=== PATIENT | female | born 1990 | race Caucasian/White ===

== ENCOUNTER 2018-08-11 16:30 | Outpatient (CLI) | payer MEDICAID ==
[2018-08-11 17:04] LABS: ADD MAN DIFF? NO; BASOPHIL # 0.1 10^3/ul (0.0-0.1); BASOPHILS % 0.7 % (0.0-2.0); EOSINOPHILS # 0.1 10^3/ul (0.0-0.5); EOSINOPHILS % 0.5 % (0.0-7.0); HEMATOCRIT 32.5 % (37.0-47.0); HEMOGLOBIN 10.9 g/dl (12.0-16.0); LYMPHOCYTES # 1.7 10^3/ul (0.8-2.9); LYMPHOCYTES % 14.1 % (15.0-51.0); MEAN CORPUSCULAR HEMOGLOBIN 31.1 pg (29.0-33.0); MEAN CORPUSCULAR HGB CONC 33.5 g/dl (32.0-37.0); MEAN CORPUSCULAR VOLUME 92.6 fl (82.0-101.0); MEAN PLATELET VOLUME 9.8 fl (7.4-10.4); MONOCYTE # 0.8 10^3/ul (0.3-0.9); MONOCYTES % 6.5 % (0.0-11.0); NEUTROPHIL # 8.9 10^3/ul (1.6-7.5); NEUTROPHILS % 76.6 % (39.0-77.0); PLATELET COUNT 341 10^3/UL (140-415); RED BLOOD COUNT 3.51 10^6/ul (4.20-5.40); RED CELL DISTRIBUTION WIDTH 13.9 % (11.5-14.5)
[2018-08-11 17:04] LABS: WHITE BLOOD COUNT 11.7 10^3/ul (4.8-10.8)
[2018-08-11 17:08] LABS: ADD UMIC NO; UR ASCORBIC ACID NEGATIVE (NEGATIVE); UR BILIRUBIN (Dip) NEGATIVE (NEGATIVE); UR BLOOD (Dip) NEGATIVE (NEGATIVE); UR CLARITY CLEAR (CLEAR); UR COLOR STRAW (YELLOW); UR GLUCOSE (Dip) NEGATIVE (NEGATIVE); UR KETONES (Dip) NEGATIVE (NEGATIVE); UR LEUKOCYTE ESTERASE (Dip) NEGATIVE Leu/ul (NEGATIVE); UR NITRITE (Dip) NEGATIVE (NEGATIVE); UR SPECIFIC GRAVITY (Dip) 1.002 (1.003-1.030); UR TOTAL PROTEIN (Dip) NEGATIVE (NEGATIVE); UR UROBILINOGEN (Dip) NEGATIVE (NEGATIVE)
[2018-08-11 17:26] LABS: ALANINE AMINOTRANSFERASE 12 IU/L (13-69); ALBUMIN 4.3 g/dl (3.3-4.9); ALKALINE PHOSPHATASE 95 IU/L (42-121); ANION GAP 14 (5-13); ASPARTATE AMINO TRANSFERASE 19 IU/L (15-46); BILIRUBIN,INDIRECT 0.1 mg/dl (0-1.1); BILIRUBIN,TOTAL 0.1 mg/dl (0.2-1.3); BLOOD UREA NITROGEN 6 mg/dl (7-20); CALCIUM 10.5 mg/dl (8.4-10.2); CARBON DIOXIDE 21 mmol/L (21-31); CHLORIDE 105 mmol/L (97-110); Estimated GFR > 60 mL/min (>60); GLUCOSE 99 mg/dl (70-220); POTASSIUM 4.1 mmol/L (3.5-5.1); SODIUM 140 mmol/L (135-144); TOTAL PROTEIN 8.2 g/dl (6.1-8.1); URIC ACID 4.5 mg/dl (3.1-7.9)
[2018-08-11 17:53] LABS: ALANINE AMINOTRANSFERASE 15 IU/L (13-69); ALBUMIN 4.2 g/dl (3.3-4.9); ALKALINE PHOSPHATASE 90 IU/L (42-121); ASPARTATE AMINO TRANSFERASE 17 IU/L (15-46); BILIRUBIN,INDIRECT 0.1 mg/dl (0-1.1); BILIRUBIN,TOTAL 0.1 mg/dl (0.2-1.3); TOTAL PROTEIN 7.6 g/dl (6.1-8.1)
[2018-08-11] MEDS ORDERED: ACETAMINOPHEN 325 MG TAB PO (18:45)
== END 2018-08-11 20:25 | disposition home or self-care (01) ==
LOC: OBT 16:30 → L-D 16:32 → OBT 20:25
DX: O13.2 Gestational [pregnancy-induced] hypertension without significant proteinuria, second trimester (principal); Z3A.22 22 weeks gestation of pregnancy
CPT/HCPCS: 36415; 80053; 80076; 81003; 84560; 85025

== ENCOUNTER 2018-10-13 15:37 | Inpatient (IN) | payer MEDICAID ==
[2018-10-13 16:20] LABS: ADD UMIC YES; UR ASCORBIC ACID NEGATIVE (NEGATIVE); UR BACTERIA FEW /HPF (NONE SEEN); UR BILIRUBIN (Dip) NEGATIVE (NEGATIVE); UR BLOOD (Dip) NEGATIVE (NEGATIVE); UR BUDDING YEAST FEW /HPF (NONE SEEN); UR CLARITY CLEAR (CLEAR); UR COLOR STRAW (YELLOW); UR GLUCOSE (Dip) NEGATIVE (NEGATIVE); UR KETONES (Dip) TRACE mg/dL (NEGATIVE); UR LEUKOCYTE ESTERASE (Dip) TRACE Leu/ul (NEGATIVE); UR NITRITE (Dip) NEGATIVE (NEGATIVE); UR RBC 0 /HPF (0-5); UR SPECIFIC GRAVITY (Dip) 1.003 (1.003-1.030); UR SQUAMOUS EPITHELIAL CELL FEW /HPF (FEW); UR TOTAL PROTEIN (Dip) NEGATIVE (NEGATIVE); UR UROBILINOGEN (Dip) NEGATIVE (NEGATIVE); UR WBC 11 /HPF (0-5)
[2018-10-13 16:48] LABS: ADD MAN DIFF? NO
[2018-10-13 16:50] LABS: WHITE BLOOD COUNT 9.2 10^3/ul (4.8-10.8)
[2018-10-13 16:50] LABS: BASOPHIL # 0.1 10^3/ul (0.0-0.1); BASOPHILS % 0.8 % (0.0-2.0); EOSINOPHILS # 0.1 10^3/ul (0.0-0.5); EOSINOPHILS % 0.5 % (0.0-7.0); HEMATOCRIT 32.1 % (37.0-47.0); LYMPHOCYTES # 1.4 10^3/ul (0.8-2.9); LYMPHOCYTES % 14.7 % (15.0-51.0); MEAN CORPUSCULAR HEMOGLOBIN 31.3 pg (29.0-33.0); MEAN CORPUSCULAR HGB CONC 34.3 g/dl (32.0-37.0); MEAN CORPUSCULAR VOLUME 91.5 fl (82.0-101.0); MEAN PLATELET VOLUME 10.1 fl (7.4-10.4); MONOCYTE # 0.6 10^3/ul (0.3-0.9); MONOCYTES % 6.5 % (0.0-11.0); NEUTROPHIL # 7.1 10^3/ul (1.6-7.5); NEUTROPHILS % 76.7 % (39.0-77.0); PLATELET COUNT 273 10^3/UL (140-415); RED BLOOD COUNT 3.51 10^6/ul (4.20-5.40); RED CELL DISTRIBUTION WIDTH 13.7 % (11.5-14.5)
[2018-10-13 17:09] LABS: ALANINE AMINOTRANSFERASE 74 IU/L (13-69); ALBUMIN 3.7 g/dl (3.3-4.9); ALBUMIN/GLOBULIN RATIO 1.15; ALKALINE PHOSPHATASE 117 IU/L (42-121); ANION GAP 6 (5-13); ASPARTATE AMINO TRANSFERASE 44 IU/L (15-46); BILIRUBIN,INDIRECT 0.3 mg/dl (0-1.1); BILIRUBIN,TOTAL 0.3 mg/dl (0.2-1.3); BLOOD UREA NITROGEN 6 mg/dl (7-20); CALCIUM 9.7 mg/dl (8.4-10.2); CARBON DIOXIDE 22 mmol/L (21-31); CHLORIDE 110 mmol/L (97-110); Estimated GFR > 60 mL/min (>60); GLUCOSE 94 mg/dl (70-220); INR 0.93; POTASSIUM 3.7 mmol/L (3.5-5.1); PROTIME 12.6 Sec (11.9-14.9); SODIUM 138 mmol/L (135-144); TOTAL PROTEIN 6.9 g/dl (6.1-8.1); URIC ACID 5.2 mg/dl (3.1-7.9)
[2018-10-13] MEDS ORDERED: ONDANSETRON 4 MG INJ IV (19:00)
[2018-10-13] MEDS ORDERED: AL HYDROX/MG HYDROX/SIMETH 30 ML CUP PO (19:00)
[2018-10-13] MEDS ORDERED: DEXTROSE 50% 50 ML SYRINGE IV ×2 (20:30)
[2018-10-13] MEDS ORDERED: GLUCAGON 1 MG INJ IM (20:30)
[2018-10-13] MEDS ORDERED: GLUCOSE GEL 15 GRAM TUBE PO ×2 (20:30)
[2018-10-13] MEDS ORDERED: GLUCOSE GEL 15 GRAM TUBE BUCCAL (20:30)
[2018-10-14 06:25] LABS: ADD MAN DIFF? NO
[2018-10-14 06:30] LABS: BASOPHIL # 0.1 10^3/ul (0.0-0.1); EOSINOPHILS # 0.1 10^3/ul (0.0-0.5); EOSINOPHILS % 0.7 % (0.0-7.0); HEMATOCRIT 32.3 % (37.0-47.0); LYMPHOCYTES # 2.2 10^3/ul (0.8-2.9); LYMPHOCYTES % 23.3 % (15.0-51.0); MEAN CORPUSCULAR HEMOGLOBIN 31.3 pg (29.0-33.0); MEAN CORPUSCULAR HGB CONC 34.1 g/dl (32.0-37.0); MEAN CORPUSCULAR VOLUME 91.8 fl (82.0-101.0); MEAN PLATELET VOLUME 10.2 fl (7.4-10.4); MONOCYTE # 0.6 10^3/ul (0.3-0.9); MONOCYTES % 6.7 % (0.0-11.0); NEUTROPHIL # 6.3 10^3/ul (1.6-7.5); NEUTROPHILS % 66.9 % (39.0-77.0); PLATELET COUNT 260 10^3/UL (140-415); RED BLOOD COUNT 3.52 10^6/ul (4.20-5.40); RED CELL DISTRIBUTION WIDTH 13.6 % (11.5-14.5)
[2018-10-14 06:30] LABS: WHITE BLOOD COUNT 9.4 10^3/ul (4.8-10.8)
[2018-10-14 06:44] LABS: INR 0.92; PROTIME 12.5 Sec (11.9-14.9)
[2018-10-14 06:45] LABS: PARTIAL THROMBOPLASTIN TIME 25.6 Sec (23.0-35.0)
[2018-10-14 06:49] LABS: ALANINE AMINOTRANSFERASE 71 IU/L (13-69); URIC ACID 5.2 mg/dl (3.1-7.9)
[2018-10-14 06:49] LABS: ASPARTATE AMINO TRANSFERASE 40 IU/L (15-46)
[2018-10-14] MEDS: ACCU-CHEK XX (19:30)
[2018-10-14 22:25] LABS: COLLECTION PERIOD 24 hrs
[2018-10-14 22:47] LABS: VOLUME 7700 mls
[2018-10-14 22:48] LABS: 24HR URINE TOTAL PROTEIN > 600.0 mg/24hrs (42.0-225.0)
[2018-10-14 22:52] LABS: COLLECTION PERIOD 24 hrs
[2018-10-14 22:53] LABS: CREATININE CLEARANCE 173.7 mls/min (84.0-162.0); CREATININE,URINE RANDOM 19.49 mg/dl (20-320); VOLUME 7700 ml/24hrs
== END 2018-10-14 22:51 | disposition left against medical advice (07) | DRG 833 ==
LOC: OBT 15:37 → L-D 15:37 → OBT 16:08 → L-D 16:08
DX: O14.93 Unspecified pre-eclampsia, third trimester (principal); Z3A.32 32 weeks gestation of pregnancy
CPT/HCPCS: 36415; 76815; 76818; 80053; 81001; 82575; 82962; 84156; 84450; 84460; 84560; 85025; 85610; 85730; 87086

== ENCOUNTER 2018-10-21 13:46 | Inpatient (IN) | payer MEDICAID ==
[2018-10-21 15:15] LABS: ADD UMIC YES; UR ASCORBIC ACID NEGATIVE (NEGATIVE); UR BACTERIA MODERATE /HPF (NONE SEEN); UR BILIRUBIN (Dip) NEGATIVE (NEGATIVE); UR BLOOD (Dip) NEGATIVE (NEGATIVE); UR CLARITY SLIGHTLY CLOUDY (CLEAR); UR COLOR YELLOW (YELLOW); UR GLUCOSE (Dip) NEGATIVE (NEGATIVE); UR KETONES (Dip) NEGATIVE (NEGATIVE); UR LEUKOCYTE ESTERASE (Dip) 3+ Leu/ul (NEGATIVE); UR NITRITE (Dip) NEGATIVE (NEGATIVE); UR RBC 1 /HPF (0-5); UR SPECIFIC GRAVITY (Dip) 1.003 (1.003-1.030); UR SQUAMOUS EPITHELIAL CELL FEW /HPF (FEW); UR TOTAL PROTEIN (Dip) NEGATIVE (NEGATIVE); UR UROBILINOGEN (Dip) NEGATIVE (NEGATIVE); UR WBC 14 /HPF (0-5)
[2018-10-21 17:07] LABS: ADD MAN DIFF? NO
[2018-10-21 17:10] LABS: BASOPHIL # 0.1 10^3/ul (0.0-0.1); BASOPHILS % 0.6 % (0.0-2.0); EOSINOPHILS % 0.3 % (0.0-7.0); HEMOGLOBIN 11.4 g/dl (12.0-16.0); LYMPHOCYTES # 1.4 10^3/ul (0.8-2.9); LYMPHOCYTES % 14.3 % (15.0-51.0); MEAN CORPUSCULAR HEMOGLOBIN 30.9 pg (29.0-33.0); MEAN CORPUSCULAR HGB CONC 33.5 g/dl (32.0-37.0); MEAN CORPUSCULAR VOLUME 92.1 fl (82.0-101.0); MEAN PLATELET VOLUME 10.1 fl (7.4-10.4); MONOCYTE # 0.8 10^3/ul (0.3-0.9); MONOCYTES % 8.2 % (0.0-11.0); NEUTROPHIL # 7.1 10^3/ul (1.6-7.5); NEUTROPHILS % 75.3 % (39.0-77.0); PLATELET COUNT 254 10^3/UL (140-415); RED BLOOD COUNT 3.69 10^6/ul (4.20-5.40); RED CELL DISTRIBUTION WIDTH 13.9 % (11.5-14.5)
[2018-10-21 17:10] LABS: WHITE BLOOD COUNT 9.5 10^3/ul (4.8-10.8)
[2018-10-21] MEDS: LACTATED RINGER'S 1,000 ML IV (17:20)
[2018-10-21 17:28] LABS: ALANINE AMINOTRANSFERASE 83 IU/L (13-69); ALBUMIN 3.8 g/dl (3.3-4.9); ALBUMIN/GLOBULIN RATIO 1.02; ALKALINE PHOSPHATASE 125 IU/L (42-121); ANION GAP 9 (5-13); ASPARTATE AMINO TRANSFERASE 61 IU/L (15-46); BILIRUBIN,INDIRECT 0.4 mg/dl (0-1.1); BILIRUBIN,TOTAL 0.4 mg/dl (0.2-1.3); BLOOD UREA NITROGEN 8 mg/dl (7-20); CALCIUM 9.1 mg/dl (8.4-10.2); CARBON DIOXIDE 24 mmol/L (21-31); CHLORIDE 102 mmol/L (97-110); CREATININE 0.82 mg/dl (0.44-1.00); Estimated GFR > 60 mL/min (>60); GLUCOSE 104 mg/dl (70-220); POTASSIUM 4.3 mmol/L (3.5-5.1); SODIUM 135 mmol/L (135-144); TOTAL PROTEIN 7.5 g/dl (6.1-8.1); URIC ACID 5.9 mg/dl (3.1-7.9)
[2018-10-21 17:30] LABS: INR 0.98; PROTIME 13.1 Sec (11.9-14.9)
[2018-10-21 17:31] LABS: PARTIAL THROMBOPLASTIN TIME 25.1 Sec (23.0-35.0)
[2018-10-21] MEDS: BETAMET NA PHOS/AC(6 MG/ML) 2 ML INJ SYG IM (18:53)
[2018-10-21 20:11] LABS: VANCOMYCIN,TROUGH < 5.0 ug/ml (10.0-20.0)
[2018-10-21] MEDS: VANCOMYCIN 1 GM (PMX) 250 ML IVPB (20:45)
[2018-10-21] MEDS ORDERED: VANCOMYCIN IV PER PHARMACY XX (21:30)
[2018-10-21 23:08] LABS: HEMOGLOBIN A1C 5.1 % (0-5.9)
[2018-10-22] MEDS: LACTATED RINGER'S 1,000 ML IV ×3 (02:51→23:56)
[2018-10-22] MEDS: VANCOMYCIN 1 GM 250 ML IVPB ×2 (05:50→17:57)
[2018-10-22] MEDS: PRENATAL VITAMIN PO (09:10)
[2018-10-22] MEDS: FERROUS SULFATE (EC) 325 MG TAB PO (09:10)
[2018-10-22] MEDS: DOCUSATE SODIUM 100 MG CAP PO ×2 (09:10→22:30)
[2018-10-22] MEDS: LABETALOL 100 MG TAB PO (11:00)
[2018-10-22] MEDS: BETAMET NA PHOS/AC(6 MG/ML) 2 ML INJ SYG IM (19:00)
[2018-10-22] MEDS: NITROFURANTOIN (SR) 100 MG CAP PO (22:30)
[2018-10-22] MEDS: RANITIDINE 150 MG TAB PO (22:40)
[2018-10-23] MEDS: LACTATED RINGER'S 1,000 ML IV ×4 (00:09→22:36)
[2018-10-23] MEDS: PRENATAL VITAMIN PO (08:16)
[2018-10-23] MEDS: FERROUS SULFATE (EC) 325 MG TAB PO (08:16)
[2018-10-23] MEDS: NITROFURANTOIN (SR) 100 MG CAP PO ×2 (08:16→20:39)
[2018-10-23] MEDS: DOCUSATE SODIUM 100 MG CAP PO ×2 (08:16→20:39)
[2018-10-23] MEDS: RANITIDINE 150 MG TAB PO ×2 (22:00→22:38)
[2018-10-24] MEDS: LACTATED RINGER'S 1,000 ML IV ×3 (06:17→22:30)
[2018-10-24] MEDS: ACCU-CHEK XX ×4 (07:45→20:18)
[2018-10-24 08:22] LABS: ADD MAN DIFF? NO
[2018-10-24 08:27] LABS: BASOPHIL # 0.1 10^3/ul (0.0-0.1); BASOPHILS % 0.7 % (0.0-2.0); EOSINOPHILS % 0.3 % (0.0-7.0); HEMATOCRIT 30.3 % (37.0-47.0); HEMOGLOBIN 9.9 g/dl (12.0-16.0); LYMPHOCYTES % 18.3 % (15.0-51.0); MEAN CORPUSCULAR HEMOGLOBIN 30.6 pg (29.0-33.0); MEAN CORPUSCULAR HGB CONC 32.7 g/dl (32.0-37.0); MEAN CORPUSCULAR VOLUME 93.5 fl (82.0-101.0); MEAN PLATELET VOLUME 10.6 fl (7.4-10.4); MONOCYTE # 0.8 10^3/ul (0.3-0.9); MONOCYTES % 7.5 % (0.0-11.0); NEUTROPHIL # 7.5 10^3/ul (1.6-7.5); NEUTROPHILS % 69.3 % (39.0-77.0); NUCLEATED RED BLOOD CELLS # 0.1 10^3/ul (0.0-0.0); NUCLEATED RED BLOOD CELLS% 0.5 /100WBC (0.0-0.0); PLATELET COUNT 249 10^3/UL (140-415); RED BLOOD COUNT 3.24 10^6/ul (4.20-5.40); RED CELL DISTRIBUTION WIDTH 14.2 % (11.5-14.5)
[2018-10-24 08:27] LABS: WHITE BLOOD COUNT 10.9 10^3/ul (4.8-10.8)
[2018-10-24 08:49] LABS: ALANINE AMINOTRANSFERASE 223 IU/L (13-69); ALBUMIN 3.2 g/dl (3.3-4.9); ALBUMIN/GLOBULIN RATIO 1.18; ALKALINE PHOSPHATASE 98 IU/L (42-121); ANION GAP 7 (5-13); ASPARTATE AMINO TRANSFERASE 149 IU/L (15-46); BILIRUBIN,INDIRECT 0.3 mg/dl (0-1.1); BILIRUBIN,TOTAL 0.3 mg/dl (0.2-1.3); BLOOD UREA NITROGEN 8 mg/dl (7-20); CALCIUM 8.8 mg/dl (8.4-10.2); CARBON DIOXIDE 22 mmol/L (21-31); CHLORIDE 111 mmol/L (97-110); CREATININE 0.61 mg/dl (0.44-1.00); Estimated GFR > 60 mL/min (>60); GLUCOSE 63 mg/dl (70-220); POTASSIUM 3.9 mmol/L (3.5-5.1); SODIUM 140 mmol/L (135-144); TOTAL PROTEIN 5.9 g/dl (6.1-8.1); URIC ACID 5.3 mg/dl (3.1-7.9)
[2018-10-24] MEDS: DOCUSATE SODIUM 100 MG CAP PO ×2 (09:08→20:54)
[2018-10-24] MEDS: PRENATAL VITAMIN PO (09:08)
[2018-10-24] MEDS: FERROUS SULFATE (EC) 325 MG TAB PO ×2 (09:08→20:54)
[2018-10-24] MEDS: NITROFURANTOIN (SR) 100 MG CAP PO ×2 (09:08→20:55)
[2018-10-24] MEDS: LABETALOL 100 MG TAB PO ×2 (19:29→23:29)
[2018-10-24] MEDS: LABETALOL HCL 20MG INJ IV (20:54)
[2018-10-24] MEDS: RANITIDINE 150 MG TAB PO (22:30)
[2018-10-25] MEDS: LACTATED RINGER'S 1,000 ML IV ×2 (05:56→13:53)
[2018-10-25 07:41] LABS: ADD MAN DIFF? NO
[2018-10-25 07:49] LABS: WHITE BLOOD COUNT 11.1 10^3/ul (4.8-10.8)
[2018-10-25 07:49] LABS: BASOPHIL # 0.1 10^3/ul (0.0-0.1); BASOPHILS % 0.9 % (0.0-2.0); EOSINOPHILS % 0.3 % (0.0-7.0); HEMATOCRIT 31.2 % (37.0-47.0); HEMOGLOBIN 10.3 g/dl (12.0-16.0); LYMPHOCYTES # 1.7 10^3/ul (0.8-2.9); LYMPHOCYTES % 15.1 % (15.0-51.0); MEAN PLATELET VOLUME 10.5 fl (7.4-10.4); MONOCYTE # 0.8 10^3/ul (0.3-0.9); NEUTROPHIL # 8.2 10^3/ul (1.6-7.5); NEUTROPHILS % 74.4 % (39.0-77.0); NUCLEATED RED BLOOD CELLS% 0.3 /100WBC (0.0-0.0); PLATELET COUNT 233 10^3/UL (140-415); RED BLOOD COUNT 3.32 10^6/ul (4.20-5.40); RED CELL DISTRIBUTION WIDTH 14.2 % (11.5-14.5)
[2018-10-25 08:09] LABS: ALANINE AMINOTRANSFERASE 247 IU/L (13-69); ALBUMIN 3.4 g/dl (3.3-4.9); ALBUMIN/GLOBULIN RATIO 1.09; ALKALINE PHOSPHATASE 109 IU/L (42-121); ANION GAP 8 (5-13); ASPARTATE AMINO TRANSFERASE 136 IU/L (15-46); BILIRUBIN,INDIRECT 0.4 mg/dl (0-1.1); BILIRUBIN,TOTAL 0.4 mg/dl (0.2-1.3); BLOOD UREA NITROGEN 6 mg/dl (7-20); CARBON DIOXIDE 22 mmol/L (21-31); CHLORIDE 110 mmol/L (97-110); CREATININE 0.61 mg/dl (0.44-1.00); Estimated GFR > 60 mL/min (>60); GLUCOSE 71 mg/dl (70-220); POTASSIUM 4.1 mmol/L (3.5-5.1); SODIUM 140 mmol/L (135-144); TOTAL PROTEIN 6.5 g/dl (6.1-8.1)
[2018-10-25] MEDS: ACCU-CHEK XX ×4 (08:43→20:44)
[2018-10-25] MEDS: DOCUSATE SODIUM 100 MG CAP PO ×2 (08:45→23:00)
[2018-10-25] MEDS: NITROFURANTOIN (SR) 100 MG CAP PO ×2 (08:45→23:00)
[2018-10-25] MEDS: FERROUS SULFATE (EC) 325 MG TAB PO ×2 (08:45→23:00)
[2018-10-25] MEDS: PRENATAL VITAMIN PO (08:45)
[2018-10-25] MEDS: LABETALOL 100 MG TAB PO ×2 (08:46→23:00)
[2018-10-25] MEDS: LABETALOL HCL 20MG INJ IV (20:11)
[2018-10-25] MEDS: MAGNESIUM SULFATE 4 GM/100 ML 100 ML IVPB (20:33)
[2018-10-25 20:53] LABS: ALANINE AMINOTRANSFERASE 279 IU/L (13-69); ALBUMIN 3.9 g/dl (3.3-4.9); ALBUMIN/GLOBULIN RATIO 1.05; ALKALINE PHOSPHATASE 135 IU/L (42-121); ANION GAP 9 (5-13); ASPARTATE AMINO TRANSFERASE 143 IU/L (15-46); BILIRUBIN,INDIRECT 0.4 mg/dl (0-1.1); BILIRUBIN,TOTAL 0.4 mg/dl (0.2-1.3); BLOOD UREA NITROGEN 9 mg/dl (7-20); CALCIUM 10.2 mg/dl (8.4-10.2); CARBON DIOXIDE 22 mmol/L (21-31); CHLORIDE 107 mmol/L (97-110); CREATININE 0.65 mg/dl (0.44-1.00); Estimated GFR > 60 mL/min (>60); GLUCOSE 95 mg/dl (70-220); POTASSIUM 3.4 mmol/L (3.5-5.1); SODIUM 138 mmol/L (135-144); TOTAL PROTEIN 7.6 g/dl (6.1-8.1)
[2018-10-25 20:59] LABS: INR 0.88; PT RATIO 0.9
[2018-10-25 21:00] LABS: PARTIAL THROMBOPLASTIN TIME 23.2 Sec (23.0-35.0)
[2018-10-25] MEDS ORDERED: LABETALOL 100 MG TAB PO (21:00)
[2018-10-25] MEDS: CLINDAMYCIN 900 MG/D5W (PMX) 50 ML IVPB (22:51)
[2018-10-25] MEDS: ONDANSETRON 4 MG INJ IV (22:53)
[2018-10-25] MEDS: METOCLOPRAMIDE 10 MG INJ IV (22:53)
[2018-10-25] MEDS ORDERED: DIPHENHYDRAMINE 50 MG INJ IV ×2 (23:00)
[2018-10-25] MEDS ORDERED: HYDROmorphONE 1 MG/5 ML IV SYRINGE IV ×3 (23:00)
[2018-10-25] MEDS ORDERED: NALOXONE (0.4 MG/ML) INJ IV (23:00)
[2018-10-25] MEDS ORDERED: METOCLOPRAMIDE 10 MG INJ IV (23:00)
[2018-10-25] MEDS ORDERED: ONDANSETRON 4 MG INJ IV ×2 (23:00)
[2018-10-25] MEDS ORDERED: KETOROLAC 30 MG INJ IV (23:00)
[2018-10-25] MEDS ORDERED: ALBUTEROL 0.083% (NEB) 2.5 MG/3 ML AMP HHN (23:00)
[2018-10-25] MEDS ORDERED: FENTAnyl 50 MCG/ML VIAL IV ×3 (23:00)
[2018-10-25] MEDS ORDERED: HYDROmorphONE 0.5 MG/0.5 ML SYG IV ×2 (23:00)
[2018-10-25] MEDS ORDERED: morphine SULFATE/PF (10 MG/10 ML) INJ (23:22)
[2018-10-25] MEDS: GENTAMICIN 80 MG/NS (PMX) 50 ML IVPB (23:40)
[2018-10-26] MEDS: LACTATED RINGER'S 1,000 ML IV ×4 (00:09→21:51)
[2018-10-26] MEDS: OXYTOCIN 30 UNITS/LR 500 ML IV ×2 (01:11→01:39)
[2018-10-26] MEDS: MAGNESIUM SULFATE 20 GM/500 ML 500 ML IV ×3 (01:30→17:25)
[2018-10-26] MEDS ORDERED: OXYTOCIN 30 UNITS/LR 500 ML IV (02:00)
[2018-10-26] MEDS ORDERED: OXYCODONE/ACETAMINOPHEN (5/325) TAB PO (02:00)
[2018-10-26] MEDS ORDERED: LANOLIN HPA 1 PKT TOP (02:00)
[2018-10-26] MEDS ORDERED: CA GLUCONATE (GM) 10% 10ML INJ IV (02:00)
[2018-10-26] MEDS ORDERED: CLINDAMYCIN 900 MG/D5W (PMX) 50 ML IVPB (02:00)
[2018-10-26] MEDS ORDERED: MISOPROSTOL 200 MCG TAB PR (02:00)
[2018-10-26] MEDS ORDERED: NACL 0.9% 3 ML SYG IV (02:00)
[2018-10-26] MEDS ORDERED: hydrALAzine 20 MG INJ IV ×2 (02:00)
[2018-10-26] MEDS ORDERED: LABETALOL HCL 20MG INJ IV (02:00)
[2018-10-26] MEDS ORDERED: CARBOPROST 250 MCG INJ IM (02:00)
[2018-10-26] MEDS: IBUPROFEN 800 MG TAB PO ×3 (06:00→22:00)
[2018-10-26] MEDS: CLINDAMYCIN 900 MG/D5W (PMX) 50 ML IVPB ×3 (06:13→21:44)
[2018-10-26 07:34] LABS: ASPARTATE AMINO TRANSFERASE 139 IU/L (15-46)
[2018-10-26 07:37] LABS: MAGNESIUM 5.6 mg/dl (1.7-2.5)
[2018-10-26] MEDS: ACCU-CHEK XX ×4 (08:05→20:05)
[2018-10-26] MEDS: NITROFURANTOIN (SR) 100 MG CAP PO ×2 (09:00→20:57)
[2018-10-26 12:34] LABS: MAGNESIUM 6.4 mg/dl (1.7-2.5)
[2018-10-26] MEDS ORDERED: PHENYLephrine (100 MCG/ML) 10ML SYG IV (15:40)
[2018-10-26] MEDS ORDERED: EPHEDrine 25 MG/5 ML SYG IV (15:40)
[2018-10-26] MEDS: KETOROLAC 30 MG INJ IV ×2 (17:22→21:57)
[2018-10-26 17:23] LABS: RAPID PLASMA REAGIN NONREACTIVE (NR)
[2018-10-26 18:41] LABS: MAGNESIUM 6.6 mg/dl (1.7-2.5)
[2018-10-26 19:56] LABS: HEPATITIS B SURFACE ANTIBODY NEGATIVE (NEGATIVE)
[2018-10-26] MEDS: LABETALOL 200 MG TAB GTB (20:57)
[2018-10-26] MEDS ORDERED: PETROLATUM 5 GM OINT TOP (21:27)
[2018-10-27] MEDS: MAGNESIUM SULFATE 20 GM/500 ML 500 ML IV (02:30)
[2018-10-27] MEDS: IBUPROFEN 800 MG TAB PO ×3 (04:37→19:52)
[2018-10-27] MEDS: ACCU-CHEK XX ×4 (07:30→20:05)
[2018-10-27 08:02] LABS: ADD MAN DIFF? NO
[2018-10-27 08:09] LABS: WHITE BLOOD COUNT 11.3 10^3/ul (4.8-10.8)
[2018-10-27 08:09] LABS: BASOPHILS % 0.4 % (0.0-2.0); EOSINOPHILS % 0.2 % (0.0-7.0); HEMATOCRIT 29.9 % (37.0-47.0); LYMPHOCYTES # 1.3 10^3/ul (0.8-2.9); LYMPHOCYTES % 11.1 % (15.0-51.0); MEAN CORPUSCULAR HEMOGLOBIN 30.7 pg (29.0-33.0); MEAN CORPUSCULAR HGB CONC 33.4 g/dl (32.0-37.0); MEAN CORPUSCULAR VOLUME 91.7 fl (82.0-101.0); MEAN PLATELET VOLUME 10.1 fl (7.4-10.4); MONOCYTE # 0.7 10^3/ul (0.3-0.9); NEUTROPHIL # 9.2 10^3/ul (1.6-7.5); NEUTROPHILS % 81.6 % (39.0-77.0); PLATELET COUNT 281 10^3/UL (140-415); RED BLOOD COUNT 3.26 10^6/ul (4.20-5.40)
[2018-10-27 08:23] LABS: ALANINE AMINOTRANSFERASE 225 IU/L (13-69)
[2018-10-27] MEDS: OXYCODONE/ACETAMINOPHEN (5/325) TAB PO ×2 (08:36→23:05)
[2018-10-27] MEDS: NITROFURANTOIN (SR) 100 MG CAP PO ×2 (10:56→21:37)
[2018-10-27] MEDS: FERROUS SULFATE (EC) 325 MG TAB PO (21:37)
[2018-10-28] MEDS: IBUPROFEN 800 MG TAB PO ×3 (05:15→22:14)
[2018-10-28] MEDS: ACCU-CHEK XX ×4 (07:30→20:05)
[2018-10-28] MEDS: OXYCODONE/ACETAMINOPHEN (5/325) TAB PO ×2 (08:54→13:11)
[2018-10-28] MEDS: FERROUS SULFATE (EC) 325 MG TAB PO ×2 (08:54→22:14)
[2018-10-28] MEDS: NITROFURANTOIN (SR) 100 MG CAP PO ×2 (08:54→22:14)
[2018-10-28 10:21] LABS: RUBELLA ANTIBODY - IGM <20.00 AU/mL
[2018-10-28] MEDS: LABETALOL 100 MG TAB PO ×2 (17:41→23:45)
[2018-10-29] MEDS: OXYCODONE/ACETAMINOPHEN (5/325) TAB PO ×2 (04:54→08:41)
[2018-10-29] MEDS: IBUPROFEN 800 MG TAB PO ×2 (06:03→14:30)
[2018-10-29] MEDS: ACCU-CHEK XX ×2 (07:30→10:05)
[2018-10-29] MEDS: LABETALOL 100 MG TAB PO (08:19)
[2018-10-29] MEDS: NITROFURANTOIN (SR) 100 MG CAP PO (08:19)
[2018-10-29] MEDS: FERROUS SULFATE (EC) 325 MG TAB PO (08:19)
== END 2018-10-29 16:33 | disposition home or self-care (01) | DRG 786 ==
LOC: OBT 13:46 → PP1 10-22 22:58 → L-D 10-26 03:22 → PP1 10-26 18:01 → L-D 10-25 20:52 → OBT 15:50 → L-D 10-25 21:01
PROC: 10D00Z1 Extraction of Products of Conception, Low, Open Approach (ICD-10-PCS; principal; 2018-10-26)
DX: O60.13X0 Preterm labor second trimester with preterm delivery third trimester, not applicable or unspecified (principal); O14.13 Severe pre-eclampsia, third trimester; O24.419 Gestational diabetes mellitus in pregnancy, unspecified control; Z3A.33 33 weeks gestation of pregnancy; Z37.0 Single live birth
CPT/HCPCS: 70450; 76815; 76818; 80053; 80202; 81001; 82962; 83036; 83735; 84450; 84460; 84560; 85025; 85384; 85610; 85730; 86592; 86706; 86762; 86850; 86900; 86901; 87086; 99464

== ENCOUNTER 2018-11-02 20:00 | Inpatient (IN) | payer MEDICAID ==
[2018-11-02 20:55] LABS: ADD MAN DIFF? NO
[2018-11-02 20:57] LABS: BASOPHIL # 0.1 10^3/ul (0.0-0.1); EOSINOPHILS # 0.1 10^3/ul (0.0-0.5); EOSINOPHILS % 1.2 % (0.0-7.0); HEMATOCRIT 35.7 % (37.0-47.0); LYMPHOCYTES # 2.5 10^3/ul (0.8-2.9); LYMPHOCYTES % 25.8 % (15.0-51.0); MEAN CORPUSCULAR HEMOGLOBIN 31.2 pg (29.0-33.0); MEAN CORPUSCULAR HGB CONC 33.6 g/dl (32.0-37.0); MEAN CORPUSCULAR VOLUME 92.7 fl (82.0-101.0); MEAN PLATELET VOLUME 9.1 fl (7.4-10.4); MONOCYTE # 0.7 10^3/ul (0.3-0.9); MONOCYTES % 7.5 % (0.0-11.0); NEUTROPHIL # 6.2 10^3/ul (1.6-7.5); NEUTROPHILS % 63.8 % (39.0-77.0); PLATELET COUNT 489 10^3/UL (140-415); RED BLOOD COUNT 3.85 10^6/ul (4.20-5.40); RED CELL DISTRIBUTION WIDTH 13.6 % (11.5-14.5)
[2018-11-02 20:57] LABS: WHITE BLOOD COUNT 9.7 10^3/ul (4.8-10.8)
[2018-11-02] MEDS: LABETALOL 200 MG TAB PO (21:00)
[2018-11-02] MEDS ORDERED: MISOPROSTOL 200 MCG TAB PR (21:00)
[2018-11-02] MEDS ORDERED: CARBOPROST 250 MCG INJ IM (21:00)
[2018-11-02] MEDS ORDERED: OXYTOCIN 30 UNITS/LR 500 ML IV (21:00)
[2018-11-02] MEDS ORDERED: METHYLERGONOVINE 0.2 MG INJ IM (21:00)
[2018-11-02] MEDS ORDERED: CA GLUCONATE (GM) 10% 10ML INJ IV (21:00)
[2018-11-02 21:18] LABS: INR 0.89; PROTIME 12.2 Sec (11.9-14.9)
[2018-11-02 21:19] LABS: PARTIAL THROMBOPLASTIN TIME 26.9 Sec (23.0-35.0)
[2018-11-02 21:21] LABS: ALANINE AMINOTRANSFERASE 67 IU/L (13-69); ALBUMIN 4.2 g/dl (3.3-4.9); ALKALINE PHOSPHATASE 130 IU/L (42-121); ASPARTATE AMINO TRANSFERASE 27 IU/L (15-46); BILIRUBIN,INDIRECT 0.3 mg/dl (0-1.1); BILIRUBIN,TOTAL 0.3 mg/dl (0.2-1.3)
[2018-11-02 21:22] LABS: ALANINE AMINOTRANSFERASE 70 IU/L (13-69); ALBUMIN 4.2 g/dl (3.3-4.9); ALBUMIN/GLOBULIN RATIO 1.07; ALKALINE PHOSPHATASE 125 IU/L (42-121); ANION GAP 15 (5-13); ASPARTATE AMINO TRANSFERASE 27 IU/L (15-46); BILIRUBIN,INDIRECT 0.3 mg/dl (0-1.1); BILIRUBIN,TOTAL 0.3 mg/dl (0.2-1.3); BLOOD UREA NITROGEN 11 mg/dl (7-20); CALCIUM 10.2 mg/dl (8.4-10.2); CARBON DIOXIDE 20 mmol/L (21-31); CHLORIDE 106 mmol/L (97-110); CREATININE 0.58 mg/dl (0.44-1.00); Estimated GFR > 60 mL/min (>60); GLUCOSE 78 mg/dl (70-220); POTASSIUM 3.6 mmol/L (3.5-5.1); SODIUM 141 mmol/L (135-144); TOTAL PROTEIN 8.1 g/dl (6.1-8.1); URIC ACID 4.8 mg/dl (3.1-7.9)
[2018-11-02] MEDS: LACTATED RINGER'S 1,000 ML IV (21:38)
[2018-11-02] MEDS: MAGNESIUM SULFATE 4 GM/100 ML 100 ML IV (21:39)
[2018-11-02] MEDS: LABETALOL HCL 20MG INJ IV (21:40)
[2018-11-02] MEDS: MAGNESIUM SULFATE 20 GM/500 ML 500 ML IV (22:15)
[2018-11-03 01:36] LABS: MAGNESIUM 4.6 mg/dl (1.7-2.5)
[2018-11-03] MEDS: ACETAMINOPHEN 325 MG TAB PO ×3 (02:14→19:16)
[2018-11-03] MEDS: ACCU-CHEK XX ×4 (07:30→20:05)
[2018-11-03] MEDS: LACTATED RINGER'S 1,000 ML IV ×2 (08:31→19:19)
[2018-11-03] MEDS: MAGNESIUM SULFATE 20 GM/500 ML 500 ML IV ×2 (08:36→17:30)
[2018-11-03] MEDS: PRENATAL VITAMIN PO (08:40)
[2018-11-03] MEDS: LABETALOL 200 MG TAB PO ×2 (08:41→19:57)
[2018-11-03 09:11] LABS: MAGNESIUM 6.6 mg/dl (1.7-2.5)
[2018-11-03 12:51] LABS: MAGNESIUM 5.1 mg/dl (1.7-2.5)
[2018-11-03] MEDS ORDERED: OXYCODONE/ACETAMINOPHEN (5/325) TAB PO ×2 (19:30)
[2018-11-03 19:56] LABS: MAGNESIUM 4.8 mg/dl (1.7-2.5)
[2018-11-04 00:58] LABS: MAGNESIUM 4.4 mg/dl (1.7-2.5)
[2018-11-04] MEDS: ACETAMINOPHEN 325 MG TAB PO ×2 (04:43→17:40)
[2018-11-04] MEDS: LACTATED RINGER'S 1,000 ML IV (05:22)
[2018-11-04] MEDS: MAGNESIUM SULFATE 20 GM/500 ML 500 ML IV (05:23)
[2018-11-04 06:51] LABS: MAGNESIUM 4.3 mg/dl (1.7-2.5)
[2018-11-04] MEDS: LABETALOL 200 MG TAB PO ×2 (08:58→22:18)
[2018-11-04] MEDS: PRENATAL VITAMIN PO (08:58)
[2018-11-04 12:57] LABS: MAGNESIUM 4.9 mg/dl (1.7-2.5)
[2018-11-04] MEDS: ACCU-CHEK XX (20:05)
[2018-11-05] MEDS: ACETAMINOPHEN 325 MG TAB PO ×2 (05:22→21:08)
[2018-11-05] MEDS: ACCU-CHEK XX ×4 (07:30→20:45)
[2018-11-05] MEDS: PRENATAL VITAMIN PO (09:09)
[2018-11-05] MEDS: LABETALOL 200 MG TAB PO ×2 (09:09→20:46)
== END 2018-11-05 21:50 | disposition home or self-care (01) | DRG 776 ==
LOC: OBT 20:00 → L-D 20:01 → OBT 20:39 → L-D 20:39 → PP1 22:37
DX: O14.15 Severe pre-eclampsia, complicating the puerperium (principal); Z91.14 Patient's other noncompliance with medication regimen
CPT/HCPCS: 70450; 80053; 80076; 82962; 83735; 84560; 85025; 85610; 85730; 86850; 86900; 86901